=== PATIENT | male | born 1990 | race Caucasian/White ===

== ENCOUNTER 2018-05-20 07:58 | Outpatient (CLI) | payer OTHER ==
[~2018-05-20] VITALS: Ht 165.2 cm; Wt 78.8 kg
[2018-05-20 08:25] VITALS: BP 113/62; PULSE 64; TEMP 97.8
[2018-05-20] MEDS ORDERED: IMITREX NA20 MG/SPRA NS (08:44)
[2018-05-20] MEDS ORDERED: PRILOSEC 20MG20 MG PO (08:45)
[2018-05-20] MEDS ORDERED: MAG-OX 400400 MG/TAB PO (08:45)
[2018-05-20] MEDS ORDERED: AMITRIPTYLINE H25 M1 PO (08:46)
[2018-05-20] MEDS ORDERED: NATURE'S BLEND100 M1 PO (08:46)
== END 2018-05-20 12:45 | disposition home or self-care (01) ==
LOC: COL.CAR 07:58
DX: R55 Syncope and collapse (principal); J45.909 Unspecified asthma, uncomplicated; G43.909 Migraine, unspecified, not intractable, without status migrainosus; Z87.891 Personal history of nicotine dependence; Z82.49 Family history of ischemic heart disease and other diseases of the circulatory system; Z53.8 Procedure and treatment not carried out for other reasons